=== PATIENT | male | born 1975 | race Two or more races ===

== ENCOUNTER 2021-09-03 09:20 | Emergency (ER) | payer SELFPAY ==
[2021-09-03 10:53] VITALS: BP 139/94
[2021-09-03] MEDS ORDERED: KETOROLAC TROMETH 60MG/2ML VIAL IM ONE (13:15)
== END 2021-09-03 13:20 | disposition home or self-care (01) ==
LOC: ER 09:20
DX: S39.012A Strain of muscle, fascia and tendon of lower back, initial encounter (principal); M54.41 Lumbago with sciatica, right side; G89.29 Other chronic pain; X58.XXXA Exposure to other specified factors, initial encounter; Y93.89 Activity, other specified; Y92.89 Other specified places as the place of occurrence of the external cause; Y99.8 Other external cause status
CPT/HCPCS: 72100; 96372; 99283; J1885